=== PATIENT | female | born 1990 | race American Indian/Alaskan Native ===

== ENCOUNTER 2016-05-21 17:10 | Emergency (ER) | payer MEDICAID ==
[2016-05-21] MEDS ORDERED: NACL 0.9% 1000 ML 1,000 ML IV ONE (17:51)
--- NOTE | 2016-05-21 17:53 | Emergency Department Report ---
History of Present Illness - General Chief Complaint: Overdose Stated Complaint: SUICIDE ATTEMPT Time Seen by Provider: 05/21/16 17:51 Source: patient, EMS Mode of arrival: Stretcher Limitations: No Limitations - History of Present Illness MD Complaint: intentional overdose -: This morning Intent: suicide attempt How Overdose Was Discovered: called 911 Context: Intentional Overdose: relationship problems, legal problems Associated Symptoms: depression Treatments Prior to Arrival: none - Related Data Allergies Allergy/AdvReac Type Severity Reaction Status Date / Time No Known Allergies Allergy Unverified 05/21/16 17:17 ED Review of Systems ROS: Stated complaint: SUICIDE ATTEMPT Other details as noted in HPI Constitutional: denies: chills, fever Eyes: denies: eye pain, eye discharge, vision change ENT: denies: ear pain, throat pain Respiratory: denies: cough, shortness of breath, wheezing Cardiovascular: denies: chest pain, palpitations Endocrine: no symptoms reported Gastrointestinal: denies: abdominal pain, nausea, diarrhea Genitourinary: denies: urgency, dysuria, discharge Musculoskeletal: denies: back pain, joint swelling, arthralgia Skin: denies: rash, lesions Neurological: denies: headache, weakness, paresthesias Psychiatric: denies: anxiety, depression Hematological/Lymphatic: denies: easy bleeding, easy bruising ED Past Medical Hx - Past Medical History Previous Medical History?: Yes Hx Psychiatric Treatment: Yes (Bipolar) - Surgical History Past Surgical History?: No - Social History Smoking Status: Never Smoker Substance Use Type: None ED Physical Exam - General Limitations: No Limitations General appearance: alert, in no apparent distress - Head Head exam: Present: atraumatic, normocephalic - Eye Eye exam: Present: normal appearance - ENT ENT exam: Present: mucous membranes moist - Neck Neck exam: Present: normal inspection - Respiratory Respiratory exam: Present: normal lung sounds bilaterally. Absent: respiratory distress - Cardiovascular Cardiovascular Exam: Present: regular rate, normal rhythm. Absent: systolic murmur, diastolic murmur, rubs, gallop - GI/Abdominal GI/Abdominal exam: Present: soft, normal bowel sounds - Extremities Exam Extremities exam: Present: normal inspection - Back Exam Back exam: Present: normal inspection - Neurological Exam Neurological exam: Present: alert, oriented X3 - Psychiatric Psychiatric exam: Present: depressed, suicidal ideation - Skin Skin exam: Present: warm, dry, intact, normal color. Absent: rash ED Course Vital Signs 05/21/16 05/21/16 17:18 17:43 Temperature 98.4 F Pulse Rate 72 75 Respiratory 16 12 Rate Blood Pressure 140/99 Blood Pressure 108/54 [Left] O2 Sat by Pulse 96 98 Oximetry Critical care attestation.: If time is entered above; I have spent that time in minutes in the direct care of this critically ill patient, excluding procedure time. ED Disposition Condition: Stable
[2016-05-21 17:56] LABS: Basophils % (Auto) 0.3 % (0.0-1.8); Eosinophils % (Auto) 1.7 % (0.0-4.3); Hematocrit 42.4 % (30.3-42.9); Hemoglobin 13.9 gm/dl (10.1-14.3); Mean Corpuscular HGB Conc 33 % (30-34); Mean Corpuscular Hemoglobin 30 pg (28-32); Mean Corpuscular Volume 92 fl (79-97); Platelet Count 221 K/mm3 (140-440); Red Blood Count 4.63 M/mm3 (3.65-5.03); Red Cell Distribution Width 13.4 % (13.2-15.2); White Blood Count 9.7 K/mm3 (4.5-11.0)
[2016-05-21 17:57] LABS: Urine Drugs of Abuse Note Disclamer
[2016-05-21 18:07] LABS: Anion Gap 19 mmol/L; Blood Urea Nitrogen 13 mg/dL (7-17); Carbon Dioxide 22 mmol/L (22-30); Chloride 102.2 mmol/L (98-107); Glucose 89 mg/dL (65-100); Potassium 3.9 mmol/L (3.6-5.0); Sodium 139 mmol/L (137-145)
[2016-05-21 18:12] LABS: Bilirubin,Urine NEG (Negative); Blood,Urine NEG (Negative); Ketones,Urine NEG (Negative); Leukocyte Esterase,Urine NEG (Negative); Mucus,Urine 3+ /HPF; Nitrite,Urine NEG (Negative); Protein,Urine <15 mg/dL mg/dL (Negative); Urobilinogen,Urine < 2.0 mg/dL (<2.0)
[2016-05-21 19:03] LABS: INR 1.11 (0.87-1.13)
--- NOTE | 2016-05-22 17:20 | Consultation ---
History of Present Illness - Reason for Consult Consult date: 05/22/16 Reason for consult: [place] Requesting physician: HILL ROMO - Chief Complaint Chief complaint: "I was just overwhelmed with life" - History of Present Psychiatric Illness 25 y.o AA female admitted to [facility] for overdose and SI attempt. Upon arrival to patient's room, she was sleeping and easily aroused. She was asked about the overdose and she replied, "I don't want to talk about it. She did state that she has a hx of cutting herself. She has a superficial wound on her left FA. She is adamant about leaving the hospital because her significant other is in fpc. She wants to sign out, but was advised that she's on a 1013. Patient is positive for marijuana and opioid use. Patient states that she see a Dr., but did not know if he's an Psychologist or Psychiatrist. She saw her Dr. in March 2016 (last visit). Also, she cannot recall what type of medication she was taken before March 2016. Patient could not rate her depression, denies SI/ HI's or AVH's at this time and stated, "I don't do meds." Medications and Allergies Allergies Allergy/AdvReac Type Severity Reaction Status Date / Time No Known Allergies Allergy Unverified 05/21/16 17:17 Home Medications Medication Instructions Recorded Confirmed Last Taken Type No Known Home Medications [No 05/22/16 05/22/16 Unknown History Reported Home Medications] Active Meds: Patient denies taken medication. Past psychiatric history - Past Medical History Past Surgical History: No surgical history - past Psychiatric treatment and history Psych: Bipolar psychiatric treatment history: [facility]. 'I don't remember why I was admitted." - Social History Social history: other (Engaged, did not finish high school, unemployed, currently on probation. Patient would not elaborate on her probation.) Mental Status Exam - Vital signs Last Vital Signs Temp 98.4 F 05/21/16 17:43 Pulse 75 05/21/16 17:43 Resp 18 05/22/16 13:20 BP 108/54 05/21/16 17:43 Pulse Ox 98 05/22/16 13:20 - Exam Narrative exam: ROS (+) Anxiety, (-) Hallicinations, (+) Depression, (-) SI/HI Orientation: time, place, person Affect: flat Mood: other (argumentative) Thought content: other (None) Thought Process: Circumstantial Perceptions: none Speech: pressured Concentration: distractible Motor activity: other (lying in bed) Level of consciousness: alert Memory: Intact Sleep Symptoms: None (6 to 7 hours) Interaction: irritable, defensive Results Result Diagrams: 05/21/16 17:36 05/21/16 17:36 Abnormal lab results 05/21/16 05/21/16 Range/Units 17:36 17:36 Creatinine 0.5 L (0.7-1.2) mg/dL Salicylates < 0.3 L (2.8-20.0) mg/dL All other labs normal. Assessment and Plan Assessment and plan: DSMV Diagnosis: Bipolar I Patient is pending inpatient services for SI attempt, harming herself, and substance abuse.
[2016-05-22 17:47] VITALS: BP 119/71
--- NOTE | 2016-05-23 01:24 | Admit Criteria Form ---
Admission Criteria Documentation: DRUG INGESTION OR OVERDOSE Clinical Indications for Admission to Inpatient Care ( Place 'X' for any and all applicable criteria): Admission is indicated for severe toxicity as indicated by ANY ONE of the following(1)(2)(3)(4)(5)(6): [ X]I. Inpatient admission required rather than observation care (Also use Drug Ingestion or Overdose: Observation Care guideline as appropriate) because of ANY ONE of the following: [ ]a) Altered mental status that is severe or persistent [ ]b) Clinical finding (eg, metabolic acidosis, hypoglycemia, bradycardia) that is severe or persistent [ ]c) Toxic drug level that is persistent [X ]d) Psychiatric risk status not acceptable for outpatient management [ ]e) Continuous intravenous infusion of anticoagulation, platelet inhibitor, vasoactive, or antiarrhythmic medication (15)(16) [ ]f) Other condition, treatment or monitoring requiring inpatient admission [ ]II. Respiratory abnormalities [ ]III. Specific finding indicating severe and likely prolonged drug toxicity [ ]IV. Hemodynamic instability [ ]V. Dangerous arrhythmia [ ]. Hypertension requiring inpatient treatment Extended stay beyond goal length of stay may be needed for (4): [ ]a) Neurologic or respiratory compromise [ ]b) Hemodynamic instability [ ]c) Persistent toxic drug levels (25) [ ]d) Severe drug toxicities or complications [ ]e) Ongoing antidote treatment (eg, acetaminophen overdose)(5) [ ]f) Older patients(65 years or older) The original [facility] content created by [employer] has been revised. The portions of the content which have been revised are identified through the use of italic text or in bold, and [facility] has neither reviewed nor approved the modified material. All other unmodified content is copyright [facility] [employer]. Please see references footnoted in the original [facility] [facility] [employer] edition 2016 Admission Criteria Met: Yes
== END 2016-05-22 22:30 ==
LOC: EEVIPCON 17:10 → ED 17:10
DX: T50.902A Poisoning by unspecified drugs, medicaments and biological substances, intentional self-harm, initial encounter (principal); Y92.89 Other specified places as the place of occurrence of the external cause; F31.9 Bipolar disorder, unspecified
CPT/HCPCS: 36415; 80048; 80307; 81001; 81025; 83930; 85025; 85610; 96360; 99285; G0480; J7030; 80320